=== PATIENT | male | born 1955 | race African-American/Black ===

== ENCOUNTER 2025-01-15 18:14 | Inpatient (IN) | payer MEDICARE ==
[2025-01-15] VITALS (13 sets, daily range): BP systolic 91–152; BP diastolic 57–119; PULSE 80–101; RESP 21; TEMP 36.6; O2SAT 98–100
[~2025-01-15] VITALS: Ht 172.7 cm; Wt 66.7 kg
[2025-01-15] MEDS ORDERED: HEPARIN 1000 UNITS/ML 10ML ONE ×3 (18:24→19:09)
[2025-01-15] MEDS ORDERED: IODIXANOL 320MG/ML 100 ML BOTTLE IV ONE ×2 (18:25→19:19)
[2025-01-15] MEDS ORDERED: LIDOCAINE HCL 1% 20ML VIAL ONE (18:25)
[2025-01-15 18:34] LABS: BASOPHILS % 1.1 % (0.0-2.0); EOSINOPHILS % 0.1 % (0.0-5.0); HEMATOCRIT. 42.4 % (42.0-52.0); HEMOGLOBIN. 13.8 g/dL (14.0-18.0); LYMPHOCYTES % 18.9 % (20.0-50.0); MEAN CORPUSCULAR HEMOGLOBIN 30.9 pg (28.0-32.0); MEAN CORPUSCULAR HGB CONC 32.4 g/dL (31.0-37.0); MEAN CORPUSCULAR VOLUME 95.3 fL (80.0-94.0); MEAN PLATELET VOLUME 10.3 fl (7.4-10.4); MONOCYTES % 4.9 % (2.0-8.0); PLATELET 140 x1000/uL (130-400); RED BLOOD CELL COUNT 4.45 mill/uL (4.7-6.1); RED CELL DISTRIBUTION WIDTH 13.7 % (11.6-14.6)
[2025-01-15] MEDS: DOPAMINE 400MG/250ML PREMIX 250 ML IV ONE (18:39)
[2025-01-15] MEDS: DOPAMINE 800MG PREMIX (DOUBLE) 250 ML IV ONE (18:39)
[2025-01-15] MEDS ORDERED: DIPHENHYDRAMINE 50MG/ML VIAL ONE (18:45)
[2025-01-15] MEDS ORDERED: ATROPINE SULFATE 1MG/10ML SYR ONE (18:45)
[2025-01-15] MEDS ORDERED: MIDAZOLAM HCL 2 MG/2 ML VIAL ONE (18:45)
[2025-01-15] MEDS ORDERED: FENTANYL CITRATE/PF 50MCG/ML 2ML VIAL ONE (18:45)
[2025-01-15 18:46] LABS: CHLORIDE 100 mEq/L (98-107); POTASSIUM 4.3 mEq/L (3.5-5.1); SODIUM 138 mEq/L (136-145)
[2025-01-15 18:47] LABS: CALCIUM 9.3 mg/dL (8.7-10.4); CARBON DIOXIDE 19 mEq/L (21-32)
[2025-01-15 18:52] LABS: CREATININE 1.8 mg/dL (0.6-1.3); INR 1.2; PARTIAL THROMBOPLASTIN TIME 27.8 sec (23.4-31.0); UREA NITROGEN BLOOD 22 mg/dL (9-23)
[2025-01-15 19:00] LABS: GLUCOSE 597 mg/dL (70-105); TROPONIN I HIGH SENSITIVITY 2274 ng/L (3.0-53)
[2025-01-15] MEDS ORDERED: NOREPINEPHRINE 8MG/250ML PMX 250 ML IV ONE (19:09)
[2025-01-15] MEDS ORDERED: EPTIFIBATIDE 2 MG/ML 10ML VIAL IV ONE (19:13)
[2025-01-15] MEDS ORDERED: EPTIFIBATIDE 100 ML IV ONE (19:20)
[2025-01-15] MEDS ORDERED: CLOPIDOGREL 75MG TABLET ONE (19:49)
[2025-01-15] MEDS ORDERED: ATROPINE SULFATE 1MG/10ML SYR IV PRN (20:15)
[2025-01-15] MEDS ORDERED: ACETAMINOPHEN 325MG TABLET PO PRN ×3 (20:15→21:45)
[2025-01-15] MEDS ORDERED: DEXTROSE 50% WATER 50ML SYRINGE IV PRN (21:30)
[2025-01-15] MEDS: INSULIN LISPRO 100 UNITS/ML SUBCUT SCH (21:38)
[2025-01-15] MEDS ORDERED: IPRATROPIUM/ALBUTEROL 0.5-3(2.5)MG/3ML NEB HHN PRN (21:45)
[2025-01-15] MEDS ORDERED: SODIUM CHLORIDE 0.9% 1,000 ML IV SCH (21:45)
[2025-01-15] MEDS ORDERED: LORAZEPAM 2MG/ML INJ IV PRN (21:45)
[2025-01-15] MEDS ORDERED: LORAZEPAM 0.5MG TABLET PO PRN (22:15)
[2025-01-15] MEDS: ATORVASTATIN CALCIUM 40MG TABLET PO SCH (22:22)
[2025-01-15] MEDS: ASPIRIN 81MG EC TABLET PO NR (22:22)
[2025-01-15] MEDS: FAMOTIDINE 20MG/2ML VIAL IV SCH (22:22)
[2025-01-15] MEDS: INSULIN LISPRO 100 UNITS/ML SUBCUT NR (22:23)
[2025-01-15] MEDS: ONDANSETRON HCL 4MG/2ML INJ IV PRN (22:35)
[2025-01-15] MEDS ORDERED: MORPHINE SULFATE 2 MG/ML INJ (NOT FOR IM USE) IV PRN (23:15)
[2025-01-15] MEDS ORDERED: DIPHENHYDRAMINE 50MG/ML VIAL IV PRN (23:15)
[2025-01-15] MEDS ORDERED: ONDANSETRON HCL 4MG TABLET PO PRN (23:15)
[2025-01-15] MEDS: NOREPINEPHRINE 8MG/250ML PMX 250 ML IV PRN (23:38)
[2025-01-15 23:39] LABS: IRON 140 ug/dL (65-175)
[2025-01-15 23:42] LABS: TOTAL IRON BINDING CAPACITY 155 ug/dl (250-425)
[2025-01-15 23:57] LABS: BETA HYDROXYBUTYRATE 0.8 mMol/L (0.0-0.3)
[2025-01-16] VITALS (117 sets, daily range): BP systolic 63–201; BP diastolic 17–169; PULSE 75–194; RESP 8–30; TEMP 36–37.2; O2SAT 93–100
[2025-01-16] MEDS: INSULIN LISPRO 100 UNITS/ML SUBCUT SCH (00:06)
[2025-01-16] MEDS: BLOOD SUGAR DIAGNOSTIC STRIP TEST SCH ×2 (00:23→01:41)
[2025-01-16] MEDS: VANCOMYCIN 1.25GM/250ML 250 ML IV NR (00:26)
[2025-01-16 00:33] LABS: CHLORIDE 100 mEq/L (98-107); POTASSIUM 4.7 mEq/L (3.5-5.1); SODIUM 136 mEq/L (136-145)
[2025-01-16 00:34] LABS: CALCIUM 9.4 mg/dL (8.7-10.4); CARBON DIOXIDE 16 mEq/L (21-32)
[2025-01-16 00:39] LABS: CREATININE 1.7 mg/dL (0.6-1.3); UREA NITROGEN BLOOD 24 mg/dL (9-23)
[2025-01-16 00:41] LABS: LACTIC ACID 10.5 mmol/L (0.4-2.0)
[2025-01-16 00:42] LABS: PHOSPHORUS 6.6 mg/dL (2.5-4.9)
[2025-01-16 00:51] LABS: GLUCOSE 563 mg/dL (70-105)
[2025-01-16] MEDS: SODIUM BICARBONATE 8.4% 50MEQ/50ML SYR IV NR ×3 (00:57→16:25)
[2025-01-16] MEDS: SODIUM CHLORIDE 0.9% 1,000 ML IV SCH (00:57)
[2025-01-16] MEDS ORDERED: DEXTROSE 50% WATER 50ML SYRINGE IV PRN (01:00)
[2025-01-16] MEDS ORDERED: BLOOD SUGAR DIAGNOSTIC STRIP TEST PRN (01:00)
[2025-01-16] MEDS ORDERED: SODIUM PHOSPHATE 15 MMOL in SODIUM CHLORIDE 0.9% 245 ML IV PRN (01:00)
[2025-01-16] MEDS ORDERED: POTASSIUM CHLORIDE 40 MEQ in SODIUM CHLORIDE 0.9% 230 ML IV PRN (01:00)
[2025-01-16] MEDS ORDERED: SODIUM CHLORIDE 0.9% 1,000 ML IV SCH (01:00)
[2025-01-16 01:10] LABS: BG BASE EXCESS -5.2 mmol/L (-2.0-3.0); BG CARBOXYHEMOGLOBIN 0.7 % (0.5-1.5); BG DEOXYHEMOGLOBIN 1.8 % (0.0-5.0); BG FRACTION INSPIRED OXYGEN 21; BG HCO3 ACT 17.9 mmol/L (21.0-28.0); BG METHEMOGLOBIN 0.3 % (0.5-1.5); BG OXYGEN SATURATION 98.2 % (94.0-98.0); BG OXYHEMOGLOBIN 97.2 % (94.0-98.0); BG PCO2 28.7 mmHg (35.0-48.0); BG PH 7.414 (7.350-7.450); BG PO2 105.1 mmHg (83.0-108.0); BG SAMPLE SITE ALINE; BG TOTAL HEMOGLOBIN 14.1 g/dL (13.5-17.5); BG VENT MODE ROOM AIR
[2025-01-16] MEDS: INSULIN REGULAR (HUMULIN R) 1000UNITS/10ML VIAL IV NR (01:17)
[2025-01-16] MEDS: INSULIN REGULAR 100U/100ML PMX 100 ML IV SCH (01:18)
[2025-01-16 02:00] LABS: TROPONIN I HIGH SENSITIVITY 54742 ng/L (3.0-53)
[2025-01-16] MEDS: CEFEPIME 2GM/50ML DUPLEX 50 ML IV SCH ×2 (03:12→16:26)
[2025-01-16 04:17] LABS: HEMATOCRIT. 40.3 % (42.0-52.0); MEAN CORPUSCULAR HEMOGLOBIN 31.3 pg (28.0-32.0); MEAN CORPUSCULAR HGB CONC 34.6 g/dL (31.0-37.0); MEAN CORPUSCULAR VOLUME 90.4 fL (80.0-94.0); MEAN PLATELET VOLUME 9.7 fl (7.4-10.4); PLATELET 166 x1000/uL (130-400); RED BLOOD CELL COUNT 4.46 mill/uL (4.7-6.1); RED CELL DISTRIBUTION WIDTH 13.9 % (11.6-14.6); WHITE BLOOD COUNT 14.4 x1000/uL (4.5-11.0)
[2025-01-16 04:28] LABS: CARBON DIOXIDE 19 mEq/L (21-32); CHLORIDE 105 mEq/L (98-107); POTASSIUM 3.8 mEq/L (3.5-5.1); SODIUM 140 mEq/L (136-145)
[2025-01-16 04:29] LABS: CALCIUM 8.8 mg/dL (8.7-10.4)
[2025-01-16 04:33] LABS: CREATININE 1.8 mg/dL (0.6-1.3)
[2025-01-16 04:34] LABS: UREA NITROGEN BLOOD 30 mg/dL (9-23)
[2025-01-16 04:35] LABS: ALANINE AMINOTRANSFERASE 536 IU/L (10-49); ALBUMIN 3.5 g/dL (3.2-4.8)
[2025-01-16 04:36] LABS: BILIRUBIN DIRECT 0.7 mg/dL (<=3.0); BILIRUBIN TOTAL 1.8 mg/dL (0.1-1.0); PHOSPHORUS 4.1 mg/dL (2.5-4.9); PROTEIN TOTAL 6.2 g/dL (6.0-8.3)
[2025-01-16 04:38] LABS: T4 FREE 1.05 ng/dL (0.89-1.76); THYROID STIMULATING HORMONE 2.49 uIU/mL (0.55-4.78)
[2025-01-16 04:46] LABS: ASPARTATE AMINOTRANSFERASE 1193 IU/L (<34)
[2025-01-16 04:53] LABS: GLUCOSE 314 mg/dL (70-105)
[2025-01-16] MEDS: MAGNESIUM 2 G PREMIX 50 ML IV PRN (05:12)
[2025-01-16] MEDS: KCL 20MEQ/100ML PREMIX 100 ML IV PRN (05:12)
[2025-01-16 05:46] LABS: TROPONIN I HIGH SENSITIVITY 335836 ng/L (3.0-53)
[2025-01-16] MEDS: SODIUM CHLORIDE 0.45% 1,000 ML IV SCH (05:57)
[2025-01-16] MEDS: DEXT 5%/0.9% NACL 1,000 ML IV SCH (06:09)
[2025-01-16 06:50] LABS: DIFFERENTIAL COMMENT 1
[2025-01-16] MEDS ORDERED: BLOOD SUGAR DIAGNOSTIC STRIP TEST SCH (07:50)
[2025-01-16] MEDS: FAMOTIDINE 20MG/2ML VIAL IV SCH (08:23)
[2025-01-16] MEDS: CLOPIDOGREL 75MG TABLET PO SCH (08:23)
[2025-01-16 08:25] LABS: *AMPHETAMINES SCREEN URINE NEGATIVE (NEGATIVE); *BARBITURATES SCREEN URINE NEGATIVE (NEGATIVE); *BENZODIAZEPINES SCREEN URINE PRESUMPTIVE POSITIVE (NEGATIVE); *COCAINE SCREEN URINE NEGATIVE (NEGATIVE); METHADONE URINE SCREEN NEGATIVE (NEGATIVE); OPIATES URINE SCREEN NEGATIVE (NEGATIVE)
[2025-01-16 08:26] LABS: CANNABINOID URINE SCREEN NEGATIVE (NEGATIVE); ECSTASY MDMA SCREEN URINE NEGATIVE (NEGATIVE); PHENCYCLIDINE URINE SCREEN NEGATIVE (NEGATIVE)
[2025-01-16] MEDS ORDERED: NALOXONE HCL 0.4MG/ML VIAL IV PRN (08:45)
[2025-01-16 09:51] LABS: CHLORIDE 105 mEq/L (98-107); POTASSIUM 4.2 mEq/L (3.5-5.1); SODIUM 141 mEq/L (136-145)
[2025-01-16 09:52] LABS: CARBON DIOXIDE 19 mEq/L (21-32)
[2025-01-16 10:00] LABS: PHOSPHORUS 4.1 mg/dL (2.5-4.9)
[2025-01-16] MEDS: LIDOCAINE HCL 1% 10 MG/ML 10ML VIAL ONE (10:25)
[2025-01-16] MEDS ORDERED: INSULIN GLARGINE 100 UNITS/ML SUBCUT NR (10:45)
[2025-01-16] MEDS: ONDANSETRON HCL 4MG/2ML INJ IV PRN (12:10)
[2025-01-16] MEDS ORDERED: ADENOSINE 3 MG/ML 2ML VIAL IV NR ×2 (12:30)
[2025-01-16] MEDS ORDERED: AMIODARONE 150MG/100ML D5W 100 ML IV NR (12:30)
[2025-01-16] MEDS: AMIODARONE HCL 900 MG in DEXT 5% WATER 482 ML IV SCH (12:36)
[2025-01-16] MEDS ORDERED: FENTANYL CITRATE/PF 50MCG/ML 2ML VIAL IV NR (12:45)
[2025-01-16] MEDS ORDERED: MIDAZOLAM HCL 2 MG/2 ML VIAL IV NR (13:00)
[2025-01-16 13:08] LABS: BG CARBOXYHEMOGLOBIN 0.8 % (0.5-1.5); BG DEOXYHEMOGLOBIN 5.5 % (0.0-5.0); BG HCO3 ACT 7.8 mmol/L (21.0-28.0); BG METHEMOGLOBIN 0.3 % (0.5-1.5); BG OXYGEN SATURATION 94.4 % (94.0-98.0); BG OXYHEMOGLOBIN 93.4 % (94.0-98.0); BG PCO2 20.1 mmHg (35.0-48.0); BG PH 7.207 (7.350-7.450); BG PO2 83.1 mmHg (83.0-108.0); BG SAMPLE SITE ALINE; BG TOTAL HEMOGLOBIN 13.3 g/dL (13.5-17.5); BG VENT MODE ROOM AIR
[2025-01-16] MEDS: PHENYLEPHRINE 50MG/250ML PMX 250 ML IV PRN (13:19)
[2025-01-16 13:25] LABS: HEMATOCRIT 39.2 % (42.0-52.0); HEMOGLOBIN 13.2 g/dL (14.0-18.0); MEAN CORPUSCULAR HEMOGLOBIN 31.3 pg (28.0-32.0); MEAN CORPUSCULAR HGB CONC 33.7 g/dL (31.0-37.0); MEAN CORPUSCULAR VOLUME 93.1 fL (80.0-94.0); PLATELET 156 x1000/uL (130-400); RED BLOOD CELL COUNT 4.22 mill/uL (4.7-6.1); WHITE BLOOD COUNT 19.1 x1000/uL (4.5-11.0)
[2025-01-16 13:31] LABS: CHLORIDE 109 mEq/L (98-107); POTASSIUM 3.4 mEq/L (3.5-5.1); SODIUM 141 mEq/L (136-145)
[2025-01-16 13:32] LABS: CALCIUM 8.2 mg/dL (8.7-10.4)
[2025-01-16 13:36] LABS: GLUCOSE 200 mg/dL (70-105)
[2025-01-16 13:37] LABS: UREA NITROGEN BLOOD 34 mg/dL (9-23)
[2025-01-16 13:39] LABS: PHOSPHORUS 5.9 mg/dL (2.5-4.9)
[2025-01-16] MEDS ORDERED: ETOMIDATE 2MG/ML 10ML VIAL IV ONE (14:05)
[2025-01-16 14:13] LABS: FOLIC ACID (FOLATE) SERUM > 20.00 ng/mL (>5.38); VITAMIN B12 SERUM 1415 pg/mL (211-911)
[2025-01-16 14:27] LABS: PLATELET ESTIMATE NORMAL
[2025-01-16 14:37] LABS: CARBON DIOXIDE < 10 mEq/L (21-32); CREATININE 2.4 mg/dL (0.6-1.3)
[2025-01-16 15:40] LABS: TROPONIN I HIGH SENSITIVITY > 125000 ng/L (3.0-53)
[2025-01-16] MEDS ORDERED: POTASSIUM CHLORIDE 40 MEQ in DEXT 5% WATER 230 ML IV ONE (16:15)
[2025-01-16] MEDS ORDERED: SODIUM CHLORIDE 0.45% 500 ML IV NR (16:15)
[2025-01-16] MEDS: KCL 20MEQ/100ML X 2 FOR TOTAL KCL 40MEQ/200ML IV SCH (16:26)
[2025-01-16 18:32] LABS: LACTIC ACID 12.3 mmol/L (0.4-2.0)
[2025-01-16 20:53] LABS: CHLORIDE 107 mEq/L (98-107); POTASSIUM 4.5 mEq/L (3.5-5.1); SODIUM 141 mEq/L (136-145)
[2025-01-16 20:54] LABS: CALCIUM 8.2 mg/dL (8.7-10.4); CARBON DIOXIDE 16 mEq/L (21-32)
[2025-01-16 20:59] LABS: CREATININE 2.6 mg/dL (0.6-1.3); GLUCOSE 194 mg/dL (70-105); UREA NITROGEN BLOOD 37 mg/dL (9-23)
[2025-01-16 21:01] LABS: ALANINE AMINOTRANSFERASE > 1100 IU/L (10-49); ALBUMIN 3.1 g/dL (3.2-4.8); ASPARTATE AMINOTRANSFERASE > 1000 IU/L (<34); PHOSPHORUS 6.3 mg/dL (2.5-4.9)
[2025-01-16 21:02] LABS: BILIRUBIN TOTAL 1.9 mg/dL (0.1-1.0); PROTEIN TOTAL 5.2 g/dL (6.0-8.3)
[2025-01-16] MEDS: PHENYLEPHRINE 100 MG in DEXT 5% WATER 240 ML IV PRN (21:05)
[2025-01-16] MEDS: NOREPINEPHRINE 32 MG in DEXT 5% WATER 218 ML IV PRN (21:06)
[2025-01-16] MEDS: VANCOMYCIN 500MG/100ML IV NR (23:01)
[2025-01-16] MEDS: SODIUM BICARBONATE 150 MEQ in SODIUM CHLORIDE 0.45% 850 ML IV SCH (23:01)
[2025-01-17] VITALS (57 sets, daily range): BP systolic 52–164; BP diastolic 34–152; PULSE 0–82; RESP 14–35; TEMP 36.1–36.5; O2SAT 0–98
[2025-01-17] MEDS: VASOPRESSIN 20 UNIT in SODIUM CHLORIDE 0.9% 99 ML IV PRN (01:20)
[2025-01-17] MEDS: MIDODRINE HCL 5MG TABLET PO SCH (01:35)
[2025-01-17] MEDS: LORAZEPAM 2MG/ML UD SYRINGE IV NR (01:35)
[2025-01-17 02:05] LABS: CALCIUM 7.6 mg/dL (8.7-10.4)
[2025-01-17 02:38] LABS: POTASSIUM 4.5 mEq/L (3.5-5.1)
[2025-01-17 03:14] LABS: PHOSPHORUS 7.3 mg/dL (2.5-4.9)
[2025-01-17] MEDS ORDERED: DOPAMINE 400MG/250ML PREMIX 250 ML IV ONE (03:56)
[2025-01-17 05:52] LABS: BG BASE EXCESS -19.8 mmol/L (-2.0-3.0); BG CARBOXYHEMOGLOBIN 0.3 % (0.5-1.5); BG DEOXYHEMOGLOBIN 0.2 % (0.0-5.0); BG FRACTION INSPIRED OXYGEN 100; BG HCO3 ACT 8.8 mmol/L (21.0-28.0); BG METHEMOGLOBIN 0.3 % (0.5-1.5); BG OXYGEN SATURATION 99.8 % (94.0-98.0); BG OXYHEMOGLOBIN 99.2 % (94.0-98.0); BG PCO2 29.9 mmHg (35.0-48.0); BG PH 7.089 (7.350-7.450); BG PO2 369.9 mmHg (83.0-108.0); BG SAMPLE SITE ALINE; BG TOTAL HEMOGLOBIN 13.6 g/dL (13.5-17.5); BG VENT MODE VENT - AC
[2025-01-17 06:00] LABS: CHLORIDE 103 mEq/L (98-107); POTASSIUM 4.1 mEq/L (3.5-5.1); SODIUM 141 mEq/L (136-145)
[2025-01-17 06:01] LABS: CALCIUM 8.2 mg/dL (8.7-10.4)
[2025-01-17 06:06] LABS: CREATININE 3.3 mg/dL (0.6-1.3); GLUCOSE 261 mg/dL (70-105); UREA NITROGEN BLOOD 47 mg/dL (9-23)
[2025-01-17] MEDS: FUROSEMIDE 40MG/4ML VIAL IVP NR (07:29)
[2025-01-17] MEDS: DOPAMINE 800MG PREMIX (DOUBLE) 250 ML IV PRN (07:34)
[2025-01-17 07:53] LABS: PHOSPHORUS 9.6 mg/dL (2.5-4.9)
[2025-01-17 07:54] LABS: CARBON DIOXIDE < 10 mEq/L (21-32)
[2025-01-17] MEDS ORDERED: CALCIUM CHLORIDE 1GM/10ML SYR IV ONE (08:09)
[2025-01-17 09:50] LABS: BASOPHILS % 0.4 % (0.0-2.0); HEMOGLOBIN. 10.2 g/dL (14.0-18.0); LYMPHOCYTES % 9.6 % (20.0-50.0); MEAN CORPUSCULAR HEMOGLOBIN 31.5 pg (28.0-32.0); MEAN CORPUSCULAR HGB CONC 32.9 g/dL (31.0-37.0); MEAN CORPUSCULAR VOLUME 95.8 fL (80.0-94.0); MEAN PLATELET VOLUME 10.6 fl (7.4-10.4); MONOCYTES % 3.9 % (2.0-8.0); NEUTROPHILS % 86.1 % (40.0-76.0); PLATELET 83 x1000/uL (130-400); RED BLOOD CELL COUNT 3.23 mill/uL (4.7-6.1); RED CELL DISTRIBUTION WIDTH 14.9 % (11.6-14.6); WHITE BLOOD COUNT 12.4 x1000/uL (4.5-11.0)
[2025-01-17] MEDS: FENTANYL 2500MCG/250ML PMX 250 ML IV PRN (10:22)
[2025-01-17] MEDS: EPINEPHRINE 10 MG in SODIUM CHLORIDE 0.9% 240 ML IV PRN (10:23)
[2025-01-17 11:08] LABS: CHLORIDE 103 mEq/L (98-107); POTASSIUM 4.2 mEq/L (3.5-5.1); SODIUM 142 mEq/L (136-145)
[2025-01-17 11:09] LABS: CALCIUM 6.6 mg/dL (8.7-10.4)
[2025-01-17 11:14] LABS: CREATININE 3.3 mg/dL (0.6-1.3); UREA NITROGEN BLOOD 46 mg/dL (9-23)
[2025-01-17 11:16] LABS: ALBUMIN 2.1 g/dL (3.2-4.8); BILIRUBIN TOTAL 1.6 mg/dL (0.1-1.0); PROTEIN TOTAL 3.9 g/dL (6.0-8.3)
[2025-01-17 11:27] LABS: ALANINE AMINOTRANSFERASE 2811 IU/L (10-49); ASPARTATE AMINOTRANSFERASE 5805 IU/L (<34)
[2025-01-17 11:32] LABS: CARBON DIOXIDE < 10 mEq/L (21-32); GLUCOSE 437 mg/dL (70-105); PHOSPHORUS 9.1 mg/dL (2.5-4.9)
== END 2025-01-17 13:47 | DRG 321 ==
LOC: ER 18:14 → CVICU 20:51
PROVIDERS: ADMIT Internal Medicine; ATTEND Internal Medicine
PROC: 027034Z Dilation of Coronary Artery, One Artery with Drug-eluting Intraluminal Device, Percutaneous Approach (ICD-10-PCS; principal; 2025-01-15)
PROC: 02C23ZZ Extirpation of Matter from Coronary Artery, Three Arteries, Percutaneous Approach (ICD-10-PCS; 2025-01-15)
PROC: 4A023N7 Measurement of Cardiac Sampling and Pressure, Left Heart, Percutaneous Approach (ICD-10-PCS; 2025-01-15)
PROC: B211YZZ Fluoroscopy of Multiple Coronary Arteries using Other Contrast (ICD-10-PCS; 2025-01-15)
PROC: B215YZZ Fluoroscopy of Left Heart using Other Contrast (ICD-10-PCS; 2025-01-15)
PROC: 5A1223Z Performance of Cardiac Pacing, Continuous (ICD-10-PCS; 2025-01-15)
PROC: B241ZZ3 Ultrasonography of Multiple Coronary Arteries, Intravascular (ICD-10-PCS; 2025-01-15)
PROC: 5A12012 Performance of Cardiac Output, Single, Manual (ICD-10-PCS; 2025-01-16)
PROC: 5A1935Z Respiratory Ventilation, Less than 24 Consecutive Hours (ICD-10-PCS; 2025-01-17)
PROC: 0BH17EZ Insertion of Endotracheal Airway into Trachea, Via Natural or Artificial Opening (ICD-10-PCS; 2025-01-17)
DX: I21.19 ST elevation (STEMI) myocardial infarction involving other coronary artery of inferior wall (principal); G93.41 Metabolic encephalopathy; I50.31 Acute diastolic (congestive) heart failure; N17.0 Acute kidney failure with tubular necrosis; I13.0 Hypertensive heart and chronic kidney disease with heart failure and stage 1 through stage 4 chronic kidney disease, or unspecified chronic kidney disease; E87.20 Acidosis, unspecified; R57.0 Cardiogenic shock; I46.9 Cardiac arrest, cause unspecified; R00.1 Bradycardia, unspecified; D72.829 Elevated white blood cell count, unspecified; D53.9 Nutritional anemia, unspecified; N18.9 Chronic kidney disease, unspecified; Z66 Do not resuscitate; F41.9 Anxiety disorder, unspecified; G35 Multiple sclerosis; E11.65 Type 2 diabetes mellitus with hyperglycemia; I25.10 Atherosclerotic heart disease of native coronary artery without angina pectoris; E83.39 Other disorders of phosphorus metabolism; Z91.148 Patient's other noncompliance with medication regimen for other reason; Z79.82 Long term (current) use of aspirin; Z79.4 Long term (current) use of insulin; Z79.02 Long term (current) use of antithrombotics/antiplatelets
CPT/HCPCS: 31500; 33210; 36415; 36573; 36600; 71045; 80048; 80051; 80053; 80076; 80202; 80305; 82010; 82375; 82607; 82728; 82746; 82805; 82962; 83036; 83540; 83550; 83605; 83735; 83880; 83930; 84100; 84145; 84439; 84443; 84484; 85025; 85027; 85347; 86850; 86900; 92941; 92950; 92973; 92978; 93005; 93306; 93458; 93970; 94002; 94070; 94760; 98960; 99291; A4606; C1725; C1726; C1753; C1760; C1769; C1887; C1893; J0282; J0330; J0461; J0692; J1200; J1265; J1327; J1644; J1815; J1940; J2003; J2060; J2250; J2371; J2405; J3010; J3370; J3475; J3480; J3490; J7042; J7060; L1830; Q9967; C1751; C1874; C1894